=== PATIENT | male | born 1975 | race Caucasian/White ===

== ENCOUNTER 2022-06-22 14:02 | Emergency (ER) | payer BC ==
[2022-06-22] MEDS ORDERED: DIPH,PERTUS(ACELL)TETVAC-LF 0.5 ML VIAL IM ONE (14:19)
[2022-06-22] MEDS ORDERED: CEPHALEXIN 500 MG CAP PO STA (14:23)
--- NOTE | 2022-06-22 14:38 | XR ---
EXAMINATION TYPE: XR finger LT DATE OF EXAM: 06/22/2022 COMPARISON: NONE HISTORY: Pain TECHNIQUE: Three views are submitted. FINDINGS: The osseous structures are intact. The joint spaces are preserved and there is no acute fracture or dislocation. There is ossific density seen posterior to the DIP joint on the dorsal surface of the h ead of the proximal phalanx has a chronic appearance. No definite metallic foreign body. IMPRESSION: 1. No definite acute fracture or dislocation if symptoms persist, follow-up study in 7 to 10 days wo uld be suggested. Bony density seen adjacent to the proximal phalanx first digit is most likely chron ic. Correlate with point tenderness to exclude tiny avulsion injury or chip fracture.
--- NOTE | 2022-06-22 14:53 | ED ---
Wound/Laceration HPI - General Chief Complaint: Wound/Laceration Stated Complaint: Cut thumb on left hand Time Seen by Provider: 06/22/22 14:12 Source: patient Mode of arrival: ambulatory Limitations: no limitations - History of Present Illness Initial Comments: Patient is a 46-year-old male who presents to the emergency department for laceration on left thumb. Patient cut himself on a knife while cutting an avocado last night at 11 PM. Patient has laceration over the palmar side of his proximal thumb. Patient denies any pain. He presents due to loss of range of motion in his thumb. Patient reports some tingling yesterday which has since resolved. Last tetanus unknown. Patient is right-hand dominant - Related Data Previous Rx's Medication Instructions Recorded Albuterol Inhaler [Ventolin Hfa 2 puff INHALATION Q4HR PRN #1 01/02/15 Inhaler] inhaler Doxycycline Monohydrate [Monodox] 100 mg PO Q12HR #20 cap 01/02/15 predniSONE 50 mg PO DAILY #5 tab 01/02/15 Amoxicillin/Potassium Clav 1 each PO Q12HR #20 tab 01/08/15 [Augmentin 875-125 Tablet] Cephalexin [Keflex] 500 mg PO Q6HR #40 cap 06/22/22 Allergies Allergy/AdvReac Type Severity Reaction Status Date / Time No Known Allergies Allergy Verified 01/02/15 16:48 Review of Systems ROS Statement: Those systems with pertinent positive or pertinent negative responses have been documented in the HPI. ROS Other: All systems not noted in ROS Statement are negative. Past Medical History Past Medical History: No Reported History History of Any Multi-Drug Resistant Organisms: None Reported Past Surgical History: Appendectomy Past Psychological History: Anxiety, Panic Disorder Past Alcohol Use History: Daily, Heavy Past Drug Use History: Marijuana General Exam Limitations: no limitations General appearance: alert, in no apparent distress Head exam: Present: atraumatic, normocephalic, normal inspection Respiratory exam: Present: normal lung sounds bilaterally. Absent: respiratory distress, wheezes, rales, rhonchi, stridor Cardiovascular Exam: Present: regular rate, normal rhythm, normal heart sounds. Absent: systolic murmur, diastolic murmur, rubs, gallop, clicks Extremities exam: Present: other (2 cm laceration running perpendicularly on palmar aspect of left thumb just distal to the MCP joint. No tendon visualized. No surrounding erythema, swelling, drainage. Full ROM of MCP joint of left thumb. No ROM of PP joint of left thumb. Neurovascularly intact) Neurological exam: Present: alert, oriented X3, CN II-XII intact Psychiatric exam: Present: normal affect, normal mood Skin exam: Present: warm, dry, intact, normal color. Absent: rash Course Vital Signs 06/22/22 06/22/22 14:04 15:00 Temperature 97.7 F 97.9 F Pulse Rate 100 72 Respiratory 20 14 Rate Blood Pressure 138/82 129/72 O2 Sat by Pulse 99 99 Oximetry Medical Decision Making - Medical Decision Making Was pt. sent in by a medical professional or institution (, [facility], [facility] [employer] [facility], urgent care, hospital, or group home...) When possible be specific @ -No Did you speak to anyone other than the patient for history (EMS, parent, family, police, friend...)? What history was obtained from this source @ -No Did you review nursing and triage notes (agree or disagree)? Why? @ -I reviewed and agree with nursing and triage notes Were old charts reviewed (outside hosp., previous admission, EMS record, old EKG, old radiological studies, urgent care reports/EKG's, group home records)? Report findings @ -No old charts were reviewed Differential Diagnosis (chest pain, altered mental status, abdominal pain women, abdominal pain men, vaginal bleeding, weakness, fever, dyspnea, syncope, headache, dizziness, GI bleed, back pain, seizure, CVA, palpatations, mental health)? @ -tendon injury, tendon rupture, laceration, cellulitis, fracture EKG interpreted by me (3pts min.). @ -As above X-rays interpreted by me (1pt min.). @ -Yes, thumb x-ray shows no definite fracture or foreign body CT interpreted by me (1pt min.). @ -None done U/S interpreted by me (1pt. min.). @ -None done What testing was considered but not performed or refused? (CT, X-rays, U/S, labs)? Why? @ -None What meds were considered but not given or refused? Why? @ -None Did you discuss the management of the patient with other professionals (professionals i.e. , PA, [employer], lab, RT, psych nurse, professor of social work, rewards consultant, teacher, antisubmarine weapons officer, caser in)? Give summary @ -No Was smoking cessation discussed for >3mins.? @ -No Was critical care preformed (if so, how long)? @ -No Were there social determinants of health that impacted care today? How? (Homelessness, low income, unemployed, alcoholism, drug addiction, transportation, low edu. Level, literacy, decrease access to med. care, skilled nursing, rehab)? @ -No Was there de-escalation of care discussed even if they declined (Discuss DNR or withdrawal of care, Hospice)? DNR status @ -No What co-morbidities impacted this encounter? (DM, HTN, Smoking, COPD, CAD, Cancer, CVA, ARF, Chemo, Hep., AIDS, mental health diagnosis, sleep apnea, morbid obesity)? @ -None Was patient admitted / discharged? Hospital course, mention meds given and route, prescriptions, significant lab abnormalities, going to OR and other pertinent info. @ Patient presenting for evaluation of laceration. Patient has small laceration over the palmar aspect of the proximal thumb no tendon is visualized however patient does not have any movement of the IP joint. he is able to fully move the MCP joint. Neurovascularly intact. X-ray negative for fracture and foreign body. Patient is out of window for closure he will be placed on antibiotics and referred to Dr. Agosto for further evaluation and management. New problem with uncertain prognosis? @ -No Drug Therapy requiring intensive monitoring for toxicity (Heparin, Nitro, Insulin, Cardizem)? @ -No Were any procedures done? @ -No Diagnosis/symptom? @ -laceration, tendon injury Acute, or Chronic, or Acute on Chronic? @ -Acute Uncomplicated (without systemic symptoms) or Complicated (systemic symptoms)? @ Uncomplicated Side effects of treatment? @ -No Exacerbation, Progression, or Severe Exacerbation? @ -No Poses a threat to life or bodily function? How? (Chest pain, [place], [place], pneumonia, PE, COPD, DKA, ARF, appy, cholecystitis, CVA, Diverticulitis, Homicidal, Suicidal, threat to staff... and all critical care pts) @ -No Dr. العلي is my attending Disposition Clinical Impression: Laceration, Tendon injury Disposition: HOME SELF-CARE Condition: Good Instructions (If sedation given, give patient instructions): Finger Laceration (ED), Tendon Laceration (ED) Additional Instructions: Take antibiotic as directed. Follow-up with Dr. Agosto in 1-2 days. Return to emergency department if you experience new, concerning, or worsening symptoms. Prescriptions: Cephalexin [Keflex] 500 mg PO Q6HR #40 cap Is patient prescribed a controlled substance at d/c from ED?: No Referrals: None,Stated [Primary Care Provider] - 1-2 days Augie Agosto DO [Doctor of Osteopathic Medicine] - 1-2 days
[2022-06-22 15:02] VITALS: BP 129/72; PULSE 72; RESP 14; TEMP 97.9
== END 2022-06-22 15:10 | disposition home or self-care (01) ==
LOC: EC 14:02
DX: S61.012A Laceration without foreign body of left thumb without damage to nail, initial encounter (principal); S66.002A Unspecified injury of long flexor muscle, fascia and tendon of left thumb at wrist and hand level, initial encounter; F41.9 Anxiety disorder, unspecified; F12.90 Cannabis use, unspecified, uncomplicated; Z23 Encounter for immunization; X58.XXXA Exposure to other specified factors, initial encounter
CPT/HCPCS: 12001; 90471; 90715; 99283

== ENCOUNTER 2022-06-30 10:18 | Day surgery (SDC) | payer BC ==
--- NOTE | 2022-06-28 12:52 | P.HPOR ---
History of Present Illness H&P Date: 06/28/22 Chief Complaint: Left thumb flexor tendon laceration Subjective: This is a 46 year old male that presents today for initial evaluation regarding a left thumb injury that occurred on 06/21/2022. Patient states he was cutting am avocado with a sharp peralta knife when the knife slipped and cut the volar aspect of his thumb. He was seen in the emergency department after the injury and was given instruction to follow-up with a hand surgeon. Since the day of the injury he states he has been unable to flex the tip of the thumb. He denies any prior injury to this extremity in the past. He denies any numbness. Physical Examination: LUE: AIN/PIN/Radial/Ulnar/Median motor intact. Radial/Ulnar/Median SILT. 2+/4 Radial/Ulnar pulses palpated. 5/5 APB, 5/5 FDI. Negative Finkelsteins, negative CMC grind, negative Durkan's compression. Thumb resting in full extension at IP joint. No passive flexion of the thumb IP joint with wrist extension. Patient unable to actively fire the thumb IP joint. 2 cm oblique incision at level of the volar MCP joint. Imaging: X-Rays of the left hand 3V reviewed from ED visit demonstrate no acute fracture. Small chronic dorsal ossific fragment present at dorsal IP joint of thumb. Impression: 1.) Left thumb FPL tendon laceration at MCP joint level Plan: Diagnosis and treatment options were discussed with the patient. He has findings concerning for a flexor tendon laceration on exam today and is already 1 week out from his injury. I recommend urgent surgical intervention with left thumb FPL tendon laceration repair. Risks and benefits of surgery including bleeding, infection, damage to surrounding tissue, need for further surgery, residual numbness, re-rupture and need for immobilization and therapy post operatively were discussed and the patient wished to go forward with surgery. 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 The patient was agreeable with this plan and will be scheduled for surgery this week since he is already 1 week out. -Augie Agosto DO Orthopedic Hand/Upper Extremity Surgeon Past Medical History Past Medical History: No Reported History History of Any Multi-Drug Resistant Organisms: None Reported Past Surgical History: Appendectomy Past Psychological History: Anxiety, Panic Disorder Past Alcohol Use History: Daily, Heavy Past Drug Use History: Marijuana Medications and Allergies Home Medications Medication Instructions Recorded Confirmed Type Albuterol Inhaler [Ventolin Hfa 2 puff INHALATION Q4HR PRN #1 01/02/15 Rx Inhaler] inhaler Doxycycline Monohydrate [Monodox] 100 mg PO Q12HR #20 cap 01/02/15 Rx predniSONE 50 mg PO DAILY #5 tab 01/02/15 Rx Amoxicillin/Potassium Clav 1 each PO Q12HR #20 tab 01/08/15 Rx [Augmentin 875-125 Tablet] Cephalexin [Keflex] 500 mg PO Q6HR #40 cap 06/22/22 Rx Allergies Allergy/AdvReac Type Severity Reaction Status Date / Time No Known Allergies Allergy Verified 01/02/15 16:48 Physical Examination Osteopathic Statement: *. No significant issues noted on an osteopathic structural exam other than those noted in the History and Physical/Consult.
[~2022-06-30 10:18] MED LIST: DEXAMETHASONE SOD PHOSPHATE 4 MG/ML 1 ML VIAL IV ONE; HYDROmorphone 0.5 MG/0.5 ML SYRINGE IVP PRN; LACTATED RINGERS 1,000 ML IV SCH; MIDAZOLAM 2 MG/2 ML VIAL IV PRN; ONDANSETRON 4 MG/2 ML VIAL IVP ONE; SCOPOLAMINE 1 MG/72 HR PATCH TRANSDERM ONE
[2022-06-30] MEDS ORDERED: MIDAZOLAM 2 MG/2 ML VIAL IVP ONE (11:26)
[2022-06-30] MEDS ORDERED: MIDAZOLAM 2 MG/2 ML VIAL ONE (12:31)
[2022-06-30] MEDS ORDERED: fentaNYL (PF) 50 MCG/ML 2 ML AMP ONE (12:31)
[2022-06-30] MEDS ORDERED: DEXAMETHASONE SOD PHOSPHATE 4 MG/ML 1 ML VIAL ONE (12:31)
[2022-06-30] MEDS ORDERED: KETOROLAC 15 MG/ML 1 ML VIAL ONE (12:31)
[2022-06-30] MEDS ORDERED: LIDOCAINE 2% INJ 20 MG/ML (2 ML VIAL) ONE (12:31)
[2022-06-30] MEDS ORDERED: PROPOFOL 10 MG/ML 20 ML VIAL IV ONE (12:31)
[2022-06-30] MEDS ORDERED: ROPIVACAINE 5 MG/ML 20 ML AMPULE ONE (12:31)
--- NOTE | 2022-06-30 12:34 | P.ANPRN ---
Procedure Note - Anesthesia - Nerve Block Performed Left Axillary Single Time Out Performed: Yes Date of Procedure: 06/30/22 Procedure Start Time: 11:25 Procedure Stop Time: 11:32 Location of Patient: PreOp Indication: Acute Post-Operative Pain, Analgesia, Requested by Surgeon Sedation Type: Sedate with meaningful contact maintained Preparation: Sterile Prep Position: Supine Needle Types: Pajunk Needle Gauge: 21 Ultrasound used to visualize needle placement: Yes Ultrasound used to observe medication spread: Yes Injectate: 0.5% Ropivacaine (see comment for volume) (20cc +4mg dexamethasone) Blood Aspirated: No Pain Paresthesia on Injection Noted: No Resistance on Injection: Normal Image Stored and Saved: Yes Events: Uneventful and Well Tolerated
[2022-06-30] MEDS ORDERED: BACITRACIN ZINC 500 UNIT/GM OINT 28.4 GM TUBE TOPICAL ONE (13:28)
[2022-06-30 14:23] VITALS: TEMP 97.1
[2022-06-30 14:36] VITALS: RESP 16
[2022-06-30 15:21] VITALS: BP 121/80; PULSE 67
--- NOTE | 2022-06-30 18:09 | P.OP ---
Date of Procedure: 06/30/22 Preoperative Diagnosis: Left thumb flexor tendon laceration Postoperative Diagnosis: Left thumb flexor tendon laceration Procedure(s) Performed: Left thumb flexor tendon repair Anesthesia: SWATI, regional Surgeon: Augie Agosto Building Contractor #1: Hai Olguin Estimated Blood Loss (ml): 0 Pathology: none sent Condition: stable Disposition: PACU Description of Procedure: This is a 46 year old male who presents today for surgical intervention for a left thumb flexor pollicis longus tendon laceration. Risks and benefits of surgery were discussed with the patient including bleeding, damage to surrounding tissue, infection, need for further surgery as well as risks of anesthesia including pulmonary embolism and even and the patient wished to proceed with surgical intervention. The patient was seen in the pre-operative area by myself. Consent and H&P were completed and updated. The correct extremity was marked in the pre-operative area by myself and all other questions were answered. Operative Narrative: The patient was brought to the operating room by the department of anesthesia. The patient received a region block in the preoperative area by the Anesthesiologist. They remained on the portable stretcher and a rolling hand table was brought to the side of the operative extremity. Pre-operative time out was performed indicating the correct patient, procedure and laterality. All in the room agreed. Pre-operative antibiotics were given prior to skin incision. The patient was then drifted off to sleep by the department of anesthesia. A nonsterile tourniquet was then applied to the operative extremity and the left upper extremity was then prepped and draped in normal sterile fashion. The operative extremity was the exsanguinated with an esmarch bandage and the tourniquet was inflated to 250mmHg. The oblique laceration at the volar skin crease slightly proximal to the DIP joint was extended proximally and distally in a Aaron type fashion. Blunt dissection was taken down through subcutaneous tissues taking care to protect branches of the radial and ulnar digital nerves. There appeared to be a complete FPL tendon laceration at the level of the proximal phalanx with 3-4cm of FPL stump remaining. The proximal tendon was not able to be identified in the sheath despite milking the sheath, palm and forearm. Therefore, decision was made to find the tendon in the carpal tunnel. 15 blade scalpel was utilized to make a transverse incision on the palmar skin centered over the palmaris longus tendon at the level of the distal wrist crease. Ragnell retractor was then placed radially and blunt dissection was performed to reveal the distal forearm fascia. This was lifted with fine Shlomo pick ups and Littler tenotomy scissors were then used to open the forearm fascia transversely and the median nerve was identified, protected and retracted ulnarly. Immediately deep to the median nerve the FPL tendon was identified and retrieved through the incision and was found to be 100% lacerated. Next an 8 Yemeni pediatric feeding tube was then inserted retrograde from the thumb flexor tendon sheath and tunneled and successfully delivered to the incision in the carpal tunnel. The distal end of the FPL tendon was then sutured to the proximal end of the feeding tube and was successfully tunneled back distally through the FPL tendon sheath. 25G needle was used to hold the tendon in the sheath and feeding tube was removed. Using a 2-0 ethibond suture a 4 strand core suture in a cruciate fashion was performed. Following core suture placement, a 4-0 running circumferential epitendinous suture was then performed with the thumb IP joint held in flexion in a tension free manner. The wound was then irrigated and skin closure was performed with 4- 0 nylon suture. Sterile dressing was applied including adaptic, 4x4s, webril and a plaster dorsal blocking splint and thumb spica splint with the thumb held in IP flexion was applied. Tourniquet was let down and the digit had immediate perfusion. The patient was then woken by the department of anesthesia and transferred to PACU in stable condition. Hai PALENCIA was present of the case to assist in major portions including tendon retrieval, repair and protection of neurovascular structures. Augie Agosto D.O. Orthopedic Hand/Upper Extremity Surgeon
== END 2022-06-30 15:34 | disposition home or self-care (01) ==
LOC: OR 10:18
PROVIDERS: ATTEND Orthopaedic Surgery Hand Surgery
DX: S56.022A Laceration of flexor muscle, fascia and tendon of left thumb at forearm level, initial encounter (principal); G89.18 Other acute postprocedural pain; F10.90 Alcohol use, unspecified, uncomplicated; F41.0 Panic disorder [episodic paroxysmal anxiety]; F12.90 Cannabis use, unspecified, uncomplicated; Z90.49 Acquired absence of other specified parts of digestive tract; Z79.899 Other long term (current) drug therapy; Z79.52 Long term (current) use of systemic steroids; Z79.51 Long term (current) use of inhaled steroids
CPT/HCPCS: 25260; 64415; 76942; J2250; J1100; J0690; J2405; J3010; J1885; J2704; J2795; J2001

== ENCOUNTER 2023-02-08 23:01 | Emergency (ER) | payer BC ==
[2023-02-08 23:29] VITALS: BP 155/95; PULSE 60; RESP 17; TEMP 96.9
[2023-02-09] MEDS ORDERED: KETOROLAC 15 MG/ML 1 ML VIAL IM STA (00:27)
[2023-02-09] MEDS ORDERED: dexAMETHasone 2 MG TAB PO STA (00:27)
--- NOTE | 2023-02-09 00:27 | ED ---
Upper Extremity HPI - General Chief Complaint: Extremity Injury, Upper Stated Complaint: Back Pain Time Seen by Provider: 02/08/23 23:45 Source: patient, RN notes reviewed, old records reviewed Mode of arrival: ambulatory Limitations: no limitations - History of Present Illness Initial Comments: This is a 47-year-old male to the emergency department for evaluation today. Patient presents today for evaluation regards to left shoulder pain significant left shoulder pain which he did see primary care was given a steroid injection which she does think helped for a while but the pain is returned the patient is very concern for mass or tumor of his lung Pancoast tumor specifically. No family history of cancer nonsmoker, patient has no injuries or trauma but the pain is getting to be worrisome. MD Complaint: Injury to:: left, shoulder -: days(s) Other Extremity Injury: Shoulder: Left Other Injuries: none Handedness: right Place: work Severity scale (1-10): 7 Improves With: none Worsens With: none Associated Symptoms: denies other symptoms Treatments Prior to Arrival: other (0) - Related Data Home Medications Medication Instructions Recorded Confirmed tadalafiL [Cialis] 5 mg PO DAILY PRN 06/28/22 06/30/22 Previous Rx's Medication Instructions Recorded Albuterol Inhaler [Ventolin Hfa 2 puff INHALATION Q4HR PRN #1 01/02/15 Inhaler] inhaler Cephalexin [Keflex] 500 mg PO Q6HR #40 cap 06/22/22 HYDROcodone/APAP 5-325MG [[place] 1 tab PO Q6HR PRN 3 Days #24 tab 06/30/22 5-325] Allergies Allergy/AdvReac Type Severity Reaction Status Date / Time No Known Allergies Allergy Verified 02/08/23 23:09 Review of Systems ROS Statement: Those systems with pertinent positive or pertinent negative responses have been documented in the HPI. ROS Other: All systems not noted in ROS Statement are negative. Past Medical History Past Medical History: No Reported History History of Any Multi-Drug Resistant Organisms: None Reported Past Surgical History: Appendectomy, Orthopedic Surgery Past Anesthesia/Blood Transfusion Reactions: No Reported Reaction Past Psychological History: Anxiety, Panic Disorder Smoking Status: Former smoker Past Alcohol Use History: Daily, Occasional Past Drug Use History: Marijuana General Exam Limitations: no limitations General appearance: alert, in no apparent distress Head exam: Present: atraumatic, normocephalic, normal inspection Eye exam: Present: normal appearance, PERRL, EOMI. Absent: scleral icterus, conjunctival injection, periorbital swelling ENT exam: Present: normal exam, mucous membranes moist Neck exam: Present: normal inspection. Absent: tenderness, meningismus, lymphadenopathy Respiratory exam: Present: normal lung sounds bilaterally. Absent: respiratory distress, wheezes, rales, rhonchi, stridor Cardiovascular Exam: Present: regular rate, normal rhythm, normal heart sounds. Absent: systolic murmur, diastolic murmur, rubs, gallop, clicks GI/Abdominal exam: Present: soft, normal bowel sounds. Absent: distended, tenderness, guarding, rebound, rigid Extremities exam: Present: normal inspection, full ROM, normal capillary refill. Absent: tenderness, pedal edema, joint swelling, calf tenderness Back exam: Present: normal inspection Neurological exam: Present: alert, oriented X3, CN II-XII intact Psychiatric exam: Present: normal affect, normal mood Skin exam: Present: warm, dry, intact, normal color. Absent: rash Course Vital Signs 02/08/23 23:03 Temperature 96.9 F L Pulse Rate 60 Respiratory 17 Rate Blood Pressure 155/95 O2 Sat by Pulse 100 Oximetry - Reevaluation(s) Reevaluation #1: 02/09/23 01:34 Medical records reviewed Reevaluation #2: 02/09/23 01:34 Remains shoulder pain Reevaluation #3: Patient informed results and questions answered Reevaluation #4: 02/09/23 01:34 Was pt. sent in by a medical professional or institution (, PA, CABLE WORKER HELPER, urgent care, hospital, or care home...) When possible be specific @ -no Did you speak to anyone other than the patient for history (EMS, parent, family, police, friend...)? What history was obtained from this source @ -no Did you review nursing and triage notes (agree or disagree)? Why? @ -agree Are old charts reviewed (outside hosp., previous admission, EMS record, old EKG, old radiological studies, urgent care reports/EKG's, care home records)? Report findings @ -yes Differential Diagnosis (chest pain, altered mental status, abdominal pain women, abdominal pain men, vaginal bleeding, weakness, fever, dyspnea, syncope, headache, dizziness, GI bleed, back pain, seizure, CVA, palpatations, mental health, musculoskeletal)? @ -prior EKG interpreted by me (3pts min.). @ -yes X-rays interpreted by me (1pt min.). @ -yes CT interpreted by me (1pt min.). @ -yes U/S interpreted by me (1pt. min.). @ -no What testing was considered but not performed or refused? (CT, X-rays, U/S, labs)? Why? @ -none What meds were considered but not given or refused? Why? @ -none Did you discuss the management of the patient with other professionals (professionals i.e. Dr., PA, CABLE WORKER HELPER, lab, RT, psych nurse, web content & social media manager, market research coordinator, teacher, protocol officer, case checker)? Give summary @ -no Was smoking cessation discussed for >3mins.? @ -no Was critical care preformed (if so, how long)? @ -no Were there social determinants of health that impacted care today? How? (Homelessness, low income, unemployed, alcoholism, drug addiction, transportation, low edu. Level, literacy, decrease access to med. care, intermediate, rehab)? @ -none Was there de-escalation of care discussed even if they declined (Discuss DNR or withdrawal of care, Hospice)? DNR status @ -no What co-morbidities impacted this encounter? (DM, HTN, Smoking, COPD, CAD, Cancer, CVA, ARF, Chemo, Hep., AIDS, mental health diagnosis, sleep apnea, morbid obesity)? @ -none Was patient admitted / discharged? Hospital course, mention meds given and route, prescriptions, significant lab abnormalities, going to OR and other pertinent info. @ - 47 male to the emergency department for evaluation of severe shoulder pain shoulder pain is going upper some time now, patient is concern for tumor. Patient has normal imaging here in the ER including computed tomography scan of the chest and patient can be discharged home Discharge Undiagnosed new problem with uncertain prognosis? @ -no Drug Therapy requiring intensive monitoring for toxicity (Heparin, Nitro, Insulin, Cardizem)? @ -no Were any procedures done? @ -no Diagnosis/symptom? @ -Left shoulder pain Acute, or Chronic, or Acute on Chronic? @ -Acute Uncomplicated (without systemic symptoms) or Complicated (systemic symptoms)? @ -Complicated Side effects of treatment? @ -no Exacerbation, Progression, or Severe Exacerbation? @ -exacerbation Poses a threat to life or bodily function? How? (Chest pain, [place], [place], pneumonia, PE, COPD, DKA, ARF, appy, cholecystitis, CVA, Diverticulitis, Homicidal, Suicidal, threat to staff... and all critical care pts) @ -no Medical Decision Making - Medical Decision Making 47 male to the emergency department for evaluation of severe shoulder pain shoulder pain is going upper some time now, patient is concern for tumor. Patient has normal imaging here in the ER including computed tomography scan of the chest and patient can be discharged home - EKG Data -: EKG Interpreted by Me (EKG is sinus 61 GA 164 QRS 125 QTC 389) - Radiology Data Radiology results: report reviewed (X-ray chest shoulder and CT of his chest is negative for acute disease), image reviewed Disposition Clinical Impression: Left shoulder pain Disposition: HOME SELF-CARE Condition: Good Instructions (If sedation given, give patient instructions): Shoulder Pain (ED) Is patient prescribed a controlled substance at d/c from ED?: No Referrals: Verna Dugan MD [Primary Care Provider] - 1-2 days Time of Disposition: 06:00
--- NOTE | 2023-02-09 05:11 | XR ---
EXAM: XR Chest, 2 Views CLINICAL HISTORY: ITS.REASON XR Reason: pain TECHNIQUE: Frontal and lateral views of the chest. COMPARISON: No relevant prior studies available. IMPRESSION: 1. No acute cardiopulmonary abnormality. Consider cross-sectional imaging if there is further concern.
--- NOTE | 2023-02-09 05:12 | XR ---
EXAM: XR Left Shoulder Complete, 2 or More Views CLINICAL HISTORY: ITS.REASON XR Reason: pain TECHNIQUE: Two or more views of the left shoulder. COMPARISON: No relevant prior studies available. IMPRESSION: 1. No evidence of acutely displaced fracture or dislocation within the left shoulder. 2. AC joint osteoarthrosis.
--- NOTE | 2023-02-09 05:51 | CT ---
EXAM: CT Chest Without Intravenous Contrast CLINICAL HISTORY: ITS.REASON CT Reason: pain, pancoast tumor TECHNIQUE: Axial computed tomography images of the chest without intravenous contrast. CTDI is 6.75 mGy and DLP is 332.5 mGy-cm. This CT exam was performed using one or more of the following dose reduction techniques: automated exposure control, adjustment of the mA and/or kV according to patient size, and/or use of iterative reconstruction technique. COMPARISON: No relevant prior studies available. FINDINGS: Lungs: Unremarkable. No mass. No consolidation. Pleural space: Unremarkable. No pneumothorax. No significant effusion. Heart: Unremarkable. No cardiomegaly. No significant pericardial effusion. No significant coronary artery calcifications. Bones/joints: Unremarkable. No acute fracture. No dislocation. Soft tissues: Unremarkable. Vasculature: Unremarkable. No thoracic aortic aneurysm. Lymph nodes: Unremarkable. No enlarged lymph nodes. IMPRESSION: Normal chest CT.
== END 2023-02-09 05:50 | disposition home or self-care (01) ==
LOC: EC 23:01
DX: M25.512 Pain in left shoulder (principal); F12.90 Cannabis use, unspecified, uncomplicated; Z87.891 Personal history of nicotine dependence; Z86.59 Personal history of other mental and behavioral disorders
CPT/HCPCS: 99284; 96372; 93005; 73030; 71046; 71250; J8540; J1885